=== PATIENT | female | born 1975 | race Caucasian/White ===

== ENCOUNTER → 2023-03-29 15:44 | Outpatient (REF) | payer OTHER, SELFPAY | LOC: RCS 15:44 | PROVIDERS: ATTENDING PHYSICIAN Nurse Practitioner Gerontology; FAMILY PHYSICIAN Internal Medicine | DX: R00.2 Palpitations (principal) | CPT/HCPCS: 93306 ==

== ENCOUNTER 2025-02-01 04:18 | Emergency (ER) | payer OTHER, SELFPAY ==
[2025-02-01 04:18] VITALS: BMI 26.2
[2025-02-01 04:23] VITALS: BP 159/97
[2025-02-01 04:44] VITALS: BP 135/79
[2025-02-01 05:00] VITALS: BP 135/79
[2025-02-01 06:00] VITALS: BP 149/85
--- NOTE | 2025-02-01 06:06 | ED.GENMED ---
History of Present Illness
General
Chief Complaint: Dental Problem
Source: patient
Exam Limitations: none
Time Seen by Provider: 02/01/25 06:04
Nursing documentation reviewed up to this point in time: agreed with
History of Present Illness
History of Present Illness:
The patient is a pleasant 49-year-old female who reports 2 days of right maxillary dental pain. Patient reports that she tried to floss the tooth and half of it cracked off. Patient reports severe pain since. Patient reports that the pain and
swelling have now radiated to her right cheek, right side of her tongue, and has caused swelling of the right upper eyelid. She denies difficulty swallowing. She reports she has tried Tylenol Motrin without any pain relief. Patient denies fevers
and chills.
Past History
Past History
ED Past Medical History: Asthma and Cancer (Skin cancer)
ED Past Surgical History: Gynecological
Social History
Tobacco: Non-smoker
Alcohol: Other
Drug: None
Personal:
Living: with family
Employment: Student
Family History
Family History: Other
Review of Systems
Review of Systems
Allergies reviewed?: Yes
All Other Systems: ROS reviewed and negative except as documented in HPI and ROS
Constitutional: Reports no symptoms
EENT: Reports other
Respiratory: Reports no symptoms
Cardiac: Reports no symptoms
ABD/GI: Reports no symptoms
: Reports no symptoms
Musculoskeletal: Reports no symptoms
Skin: Reports no symptoms
Neurological: Reports no symptoms
Endocrine: Reports no symptoms
Hematologic/Lymphatic: Reports no symptoms
Psychiatric: Reports no symptoms
Phy Exam
Physical Exam
Physical Exam:
Physical Exam
General: Patient is tearful and appears uncomfortable. Visibly swollen right upper eyelid, right upper and lower cheek.
Neck: supple. No trismus, no pooling of saliva, no obvious tongue swelling, no swelling under tongue, no uvular swelling. Airway is widely patent. No soft tissue neck swelling. Fullness, swelling and soft tissue
tenderness of right face. Extraocular muscles intact
Heart: s1/s2 regular rate and rhythm, no murmur. equal radial pulses.
Lungs: no acute respiratory distress. clear bilaterally
Abdomen: normal bowel sounds. not tender. no CVAT
Neuro: alert and oriented. no focal neurological deficits
Skin: no rash
Psychiatric: well kept. interactive and cooperative
Extremities: no edema. no calf tenderness. negative homans. good distal pulses
Course
Orders/Labs/Results
Orders:
Orders
02/01/25 06:33
Ketorolac [Toradol] 30 mg IV NOW STA
02/01/25 06:34
HYDROmorphone [Dilaudid] 0.5 mg IV NOW STA
02/01/25 06:36
CT Facial Bones W/ Iv Contrast Urgent
Comment:
Reason For Exam: dental infection, R facial swelling
02/01/25 06:49
Complete Blood Count/With Diff Urgent
Comprehensive Metabolic Panel Urgent
02/01/25 07:08
Clindamycin 600 mg/50 ml [Cleocin] 600 mg in 50 ml IV NOW
Abnormal Lab Results
02/01/25
06:49
Absolute Neuts (auto) 8.6 H 10^3/uL
(1.4-6.5)
Absolute Monos (auto) 0.7 H 10^3/uL
(0.1-0.6)
Neutrophils % 79.7 H %
(42.2-75.2)
Lymphocytes % 12.3 L %
(20.5-51.1)
02/01/25 06:49
02/01/25 06:49
Vital Signs
Initial and Last Documented VS:
Initial Vital Signs
Temp Pulse BP Pulse Ox
98.4 F 94 159/97 99
02/01/25 04:23 02/01/25 04:23 02/01/25 04:23 02/01/25 04:23
Last Documented Vital Signs
Temp Pulse BP Pulse Ox
98.9 F 94 138/88 98
02/01/25 04:57 02/01/25 04:23 02/01/25 07:01 02/01/25 07:15
MDM/Problems Addressed
Differential Diagnosis Includes:
Dental abscess, deep space infection of face, preseptal cellulitis
MDM/Problems Addressed:
Patient presents with acute right maxillary dental pain, swelling and pain of right cheek and right upper eyelid
Acute Exacerbation and/or Progression of Chronic Illness:
Patient is likely hypertensive due to pain.
*Radiology
Radiology exam reviewed: radiology read reviewed
*Pulse Oximetry
SaO2: 100
Oxygen Mode of Delivery: Room air
Patient hypoxic: no
*EKG
Interpreted by ED Provider?: NA
*Ladies Suit Operator Interpretation
Rate: Ladies Suit Operator- N/A
*Critical Care Note
Total Time (30-74mins, 75-104mins- exclusive of procedures): Not Applicable
Data Reviewed
Review of Other/Old Records Reveals: Labs (Labs appear normal and reviewed by me from 2019)
Source: patient
Patient Management
Social determinants of health affecting care: Living situation and Strong social support
ED Attending Note
-
Portions of this chart may have been created with voice recognition software.� Occasional wrong word or��sound alike� substitutions may have occurred due to the inherent limitations of voice recognition software.
Discharge Plan
Departure
Patient Disposition: Home (Routine Discharge)
Date of Disposition: 02/01/25
Time of Disposition: 08:41
Patient with high blood pressure during this ER visit?: Yes
Condition: Good
Covid-19: Not Applicable
Discharge Problem:
Dental infection
Instructions: Dental pain - ED (DC), BLOOD PRESSURE
Prescriptions:
New
clindamycin HCl [Cleocin HCl] 300 mg capsule
300 mg PO Q8H Qty: 19 0RF
oxycodone 5 mg tablet
5 mg PO Q6H PRN (Reason: Pain) Qty: 8 0RF
No Action
multivitamin 1 EACH tablet
1 ea PO DAILY AT 0700
biotin 1 MG tablet
1 mg PO DAILY AT 0700
Referrals:
Enzo Hargrove MD [[facility], Internal Medicine]
Stand Alone Forms: Return to Work
Activity Restrictions/Additional Instructions:
It is extremely important that you speak and see your dentist tomorrow.
Take 600 mg of Motrin/Advil every 6-8 hours for pain. Your next dose is due at 12:30 PM today.
If the pain is still severe, take 1 oxycodone every 4-6 hours for severe pain.
Take your next dose of clindamycin tonight before bedtime
Interventions
Interventions:
*Risk Screen - Suicide Last Done: 02/01/25 04:25
*General Assessment Last Done: 02/01/25 04:25
*Neglect/Abuse Screening Last Done: 02/01/25 04:51
*ED COVID-19 Vaccine History Last Done: 02/01/25 04:51
*ED Influenza Vaccine History Last Done: 02/01/25 04:51
[facility] Fall Risk Assessment Tool Last Done: 02/01/25 04:18
Discharge Date and Time
Print Language: WELSH
[2025-02-01] MEDS: TORADOL 30 MG IV (06:42)
[2025-02-01] MEDS: DILAUDID 0.5 MG IV (06:43)
[2025-02-01 06:55] LABS: Hematocrit 40.0 % (37.0-47.0); Hemoglobin 13.5 g/dL (12.0-16.0); Mean Corp Hgb Conc. 33.8 g/dL (33.0-37.0); Mean Corpuscular Volume 89.5 fL (81.0-99.0); Nucleated Red Blood Cells % 0 %; Platelet Count 263 10^3/uL (130-400); Red Cell Dist. Width 12.7 % (11.5-14.5)
[2025-02-01 07:01] VITALS: BP 138/88
[2025-02-01 07:16] LABS: ALT (SGPT) 16 U/L (0-35); AST (SGOT) 21 U/L (14-36); Albumin 4.6 g/dl (3.5-5.0); Alkaline Phosphatase 104 U/L (38-126); Blood Urea Nitrogen 12 mg/dl (7-17); Calcium 9.3 mg/dl (8.4-10.2); Carbon Dioxide 26 mmol/L (22-30); Chloride 107 mmol/L (98-107); Estimated Creatinine Clearance 103 ml/min; Glucose 95 mg/dl (70-99); Potassium 4.0 mmol/L (3.5-5.1); Sodium 139 mmol/L (135-145); Total Protein 7.6 g/dl (6.3-8.2); eGFR > 60.00
[2025-02-01] MEDS: CLEOCIN 50 IV (07:23)
[2025-02-01 08:00] VITALS: BP 134/71
== END 2025-02-01 10:59 | disposition home or self-care (01) ==
LOC: EMR 04:18
PROVIDERS: EMERGENCY PHYSICIAN Emergency Medicine; FAMILY PHYSICIAN Internal Medicine
DX: K04.7 Periapical abscess without sinus (principal); J45.909 Unspecified asthma, uncomplicated; Z85.828 Personal history of other malignant neoplasm of skin
CPT/HCPCS: 99284; 96374; 96375; 70487; 80053; 85025; Q9967